=== PATIENT | female | born 2000 | race Caucasian/White ===

== ENCOUNTER 2023-07-23 14:40 | Outpatient (CLI) | payer OTHER, SELFPAY ==
--- NOTE | 2023-07-23 14:41 | US_ITS ---
PROCEDURE INFORMATION: Exam: US Right Breast, Complete US Left Breast, Complete Exam date and time: 07/23/2023 3:03 PM Age: 22 years old Clinical indication: Bilateral Fibrocystic breasts TECHNIQUE: Imaging protocol: Complete ultrasound of all four quadrants of the right breast and the retroareolar regions, including ultrasound of the axilla when performed. Complete ultrasound of all four quadrants of the left breast and the retroareolar regions, including ultrasound of the axilla when performed. COMPARISON: No relevant prior studies available. FINDINGS: Breast: Sonographic images of both breasts including the retroareolar regions, all 4 quadrants and the axilla demonstrates a cluster of anechoic and hypoechoic masses in the left 1 o'clock axis 4 cm from the nipple with a combined dimension 1.3 cm. This likely reflects a cluster of simple and debris-filled cysts. 2.6 cm cyst in the right 11 o'clock axis 4 cm from the nipple . 2 adjacent subcentimeter right retroareolar cysts. No architectural distortion or acoustical shadowing. No skin thickening or axillary adenopathy. IMPRESSION: Probable cluster benign cysts in the left 1 o'clock axis. A six-month follow-up targeted left breast ultrasound is recommended to ensure stability over time ASSESSMENT: BI-RADS Category 3: Probably benign.
== END 2023-07-23 23:59 ==
LOC: RAD 14:41
PROVIDERS: PCP Emergency Medicine; Visit Provider Obstetrics & Gynecology
DX: N60.11 Diffuse cystic mastopathy of right breast (principal); N60.12 Diffuse cystic mastopathy of left breast
CPT/HCPCS: 76641

== ENCOUNTER 2023-09-07 14:46 | Outpatient (CLI) | payer OTHER, SELFPAY ==
[2023-09-07 15:14] LABS: Basophils # 0.1 K/mm3 (0-0.2); Basophils % 0.9 % (0.1-2.0); Eosinophils # 0.2 K/mm3 (0.0-0.4); Eosinophils % 2.1 % (0.1-12.0); Hematocrit 43.9 % (37.0-47.0); Hemoglobin 14.6 g/dL (12.2-16.2); Lymphocytes # 2.2 K/mm3 (0.7-4.5); Lymphocytes % 23.5 % (10-50); Mean Corpuscular HGB Conc 33.3 g/dL (31.8-35.4); Mean Corpuscular Hemoglobin 28.8 pg (27.0-31.2); Mean Corpuscular Volume 86.4 fl (81-99); Mean Platelet Volume 7.7 fl (7.4-10.4); Monocytes # 0.7 K/mm3 (0.1-1.0); Neutrophils # 6.3 K/mm3 (1.8-7.8); Neutrophils % 66.5 % (37.0-80.0); Platelet Count 321 K/mm3 (142-424); Red Blood Count 5.07 M/mm3 (4.20-5.40); Red Cell Distribution Width 13.4 % (11.5-17.5); White Blood Count 9.4 K/mm3 (4.8-10.8)
[2023-09-07 15:45] LABS: Alanine Aminotransferase 22 U/L (12-78); Albumin Level 4.5 g/dl (3.5-5.0); Albumin/Globulin Ratio 1.6 (1.1-1.8); Alkaline Phosphatase 67 U/L (38-126); Anion Gap 9.6 mEq/L (5-15); Aspartate Amino Transferase 27 U/L (14-36); Bilirubin,Total 0.7 mg/dl (0.2-1.3); Blood Urea Nitrogen 8 mg/dl (7-17); Calcium 9.8 mg/dl (8.4-10.2); Carbon Dioxide 26 mmol/L (22.0-30.0); Chloride 109 mmol/L (98-107); Estimated Glomerular Filt Rate 126 ml/min (>60); GFR (African American) 153 ML/MIN (>60); Globulin 2.8 g/dL (1.3-3.2); Glucose 78 mg/dl (74-100); Potassium 3.6 mmoL/L (3.5-5.1); Sodium 141 mmol/L (136-145); Total Protein,Serum 7.3 g/dl (6.3-8.2)
[2023-09-07 16:16] LABS: Thyroid Stimulating Hormone 1.25 uIU/mL (0.465-4.68)
[2023-09-09 09:09] LABS: Estradiol 18.6 pg/mL (.); FSH 4.5 mIU/mL (.)
== END 2023-09-07 23:59 | disposition home or self-care (01) ==
LOC: LAB 14:48
PROVIDERS: PCP Emergency Medicine; Visit Provider Obstetrics & Gynecology
DX: N93.9 Abnormal uterine and vaginal bleeding, unspecified (principal)
CPT/HCPCS: 36415; 80053; 82397; 82670; 83001; 83036; 84403; 84443; 85025

== ENCOUNTER 2023-09-14 13:48 | Outpatient (CLI) | payer OTHER, SELFPAY ==
--- NOTE | 2023-09-14 13:52 | US_ITS ---
PROCEDURE: US TRANSVAGINAL CLINICAL INDICATION: abnormal uterine bleeding COMPARISON: No exams were available for comparison FINDINGS: Transvaginal sonographic images of the pelvis were obtained. UTERUS: 6.5cm x 5.0cmx 2.7 cm anteverted with a combined endometrial thickness of 5.7mm. The endometrium appears heterogenous with a hyperechoic basalis. There appears to be blood within the endometrium and within the cervix. She was actively bleeding during the examination. LEFT OVARY: 4.5cmx3.2cmx1.7cm with a volume of 12.7ml. The ovary has a polycystic appearance. There is a dominant follicle measuring 1.0 x 1.2 x 0.76 cm. RIGHT OVARY: 1.5cmx 4.0cmx3.1cm with a volume of 9.6ml. There are multiple small peripheral follicles. Both ovaries are seen and appear polycystic. Doppler flow to both ovaries are seen. There is no fluid in the cul-de-sac. IMPRESSION: 1. Anteverted uterus normal in shape and size. 2. The endometrium is 6 mm and there appears to be active bleeding within the endometrial cavity and cervix. 3. Both ovaries are seen and appear polycystic. There is a dominant follicle in the left ovary measuring 1.2 cm. 4. No fluid in the cul-de-sac. Dictated by: Bernardo Oneill MD 09/14/2023 16:23 Bernardo Oneill MD in [facility] 09/14/2023 16:23
== END 2023-09-14 23:59 | disposition home or self-care (01) ==
LOC: RAD 13:49
PROVIDERS: PCP Emergency Medicine; Visit Provider Obstetrics & Gynecology
DX: N93.9 Abnormal uterine and vaginal bleeding, unspecified (principal)
CPT/HCPCS: 76830